=== PATIENT | female | born 1970 | race Caucasian/White ===

== ENCOUNTER 2019-02-21 21:10 | Emergency (ER) | payer BC ==
[~2019-02-21] VITALS: Ht 170.2 cm; Wt 77.7 kg
[2019-02-21 21:16] VITALS: BP 144/79
[2019-03-30] MEDS ORDERED: MECL25TA4 PO (14:24)
== END 2019-02-21 22:35 | disposition home or self-care (01) ==
LOC: ED 22:15
DX: S61.012A Laceration without foreign body of left thumb without damage to nail, initial encounter (principal); S16.1XXA Strain of muscle, fascia and tendon at neck level, initial encounter; S00.81XA Abrasion of other part of head, initial encounter; M47.892 Other spondylosis, cervical region; W01.0XXA Fall on same level from slipping, tripping and stumbling without subsequent striking against object, initial encounter; Y93.89 Activity, other specified; Y92.480 Sidewalk as the place of occurrence of the external cause; Y99.8 Other external cause status
CPT/HCPCS: 12041; 72125; 99284